=== PATIENT | male | born 1990 | race Hispanic/Latino ===

== ENCOUNTER 2023-01-08 10:20 | Emergency (ER) | payer SELFPAY ==
[~2023-01-08] VITALS: Ht 172.7 cm; Wt 90.8 kg
[2023-01-08 10:27] VITALS: BP 164/109
[2023-01-08 10:30] VITALS: BP 158/104
[2023-01-08 10:45] VITALS: BP 160/96
[2023-01-08] MEDS ORDERED: VALACYCLOVIR HCL1 GM PO (10:56)
[2023-01-08] MEDS ORDERED: PREDNISONE20 MG PO (10:56)
[2023-01-08 11:01] VITALS: BP 150/101
== END 2023-01-08 11:10 | disposition home or self-care (01) | DRG 74 ==
LOC: ED 10:20
DX: G51.0 Bell's palsy (principal)